=== PATIENT | female | born 2005 | race African-American/Black ===

== ENCOUNTER 2024-12-22 18:45 | Emergency (ER) | payer MEDICAID, SELFPAY ==
--- NOTE | 2024-12-22 18:52 | ED_ITS ---
HPI - Skin/Abscess/Foreign Bdy General Chief complaint: Skin/Abscess/Foreign Body Stated complaint: Skin/Abscess/Foreign Body Time Seen by Provider: 12/22/24 18:53 Source: patient Mode of arrival: ambulatory Limitations: no limitations History of Present Illness HPI narrative: Christine is a 19-year-old female patient presenting to the clinic today with complaints of a itchy rash on bilateral hands. States it started 2 nights ago. 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 Has use some hydrocortisone cream with relief. States that the bumps looks to be fluid-filled and are itching on her hands. No sign tunneling, redness, or swelling. Denies any sores in her mouth or on her feet. No fevers, chills, or body aches Related Data Allergies Allergy/AdvReac Type Severity Reaction Status Date / Time No Known Allergies Allergy Verified 12/22/24 18:52 Review of Systems Review of Systems: Pertinent positives per HPI. Patient denies any fever, chills, rash, headache, visual changes, dizziness, cough, runny nose, sore throat, shortness of breath, chest pain, palpitations, nausea, vomiting, diarrhea, constipation, abdominal pain, or any urinary issues. PMFSH Comments At the time of my signature, I reviewed and agree with the nursing past medical, surgical, social, and family history. There is no relevant family history pertinent to the patient complaint. Exam Narrative: General: Well-developed, well nourished, in no apparent distress Head: Normocephalic, atraumatic. Cardio: Regular rate and rhythm, s1 and s2 normal, no murmur appreciated. Resp: Clear to auscultation bilaterally, no rhonchi, rales, wheezing or rubs. Integumentary: [place], warm, and dry, small fluid-filled like blisters on bilateral hands on fingers and palms Course Course Emergency Course: Portions of this record may have been created with voice recognition software. Level of Care: Express Care Visit Vital Signs Vital signs: Vital Signs Temperature 36.6 C 12/22/24 18:53 Pulse Rate 90 12/22/24 18:53 Respiratory Rate 18 12/22/24 18:53 Blood Pressure 120/67 12/22/24 18:53 Pulse Oximetry 100 12/22/24 18:53 Oxygen Delivery Room Air 12/22/24 18:53 Temperature 36.6 C 12/22/24 18:53 Pulse Rate 90 12/22/24 18:53 Respiratory Rate 18 12/22/24 18:53 Blood Pressure 120/67 12/22/24 18:53 Pulse Oximetry 100 12/22/24 18:53 Oxygen Delivery Room Air 12/22/24 18:53 Vital signs reviewed MDM - Skin/Abscess/Foreign Bdy MDM Narrative Medical decision making narrative: At the time of visit patient is resting comfortably on the exam table. Patient appears to be nontoxic. Plan: Differentials include molluscum, scabies, [id number], eczema, or viral rash. I suspect patient has dihydrate eczema. Prescription for triamcinolone cream was sent to the pharmacy. Supportive measures were discussed with the patient and they voiced understanding discharge instructions and agrees to treatment plan. Return precautions reviewed Differential Diagnosis Differential diagnosis: Likely abscess of skin or subcutaneous tissue, viral exanthem, dermatophytosis, urticaria, herpes zoster, allergic reaction to drug, cellulitis, eczema, insect bites, impetigo, contact dermatitis and other (Mol luscum, [id number]) Discharge Plan Discharge Clinical Impression: Dyshidrotic eczema Patient Disposition: Home Condition: Stable Instructions: Antibiotic Form, Dyshidrotic Eczema (ED) Additional Instructions: Apply triamcinolone cream as directed Avoid triggers causing the dermatitis Avoid hot showers Avoid scratching as this can cause a secondary infection May take benadryl 25-50mg every 6 hours as needed for itching. Follow up with your PCP in 3-5 days if symptoms persist or sooner if they worsen Go to the Emergency Room if symptoms worsen- fever, rash spreading with treatment, shortness of breath, tongue swelling, drooling, or chest pain Patient Language: [place] Prescriptions: New triamcinolone acetonide 0.1 % cream 1 applic topical BID 7 Days Qty: 30 0RF Follow-up/Referrals: PHYSICIAN,ARABIC TRANSLATOR [Primary Care Provider] - Time of Disposition: 18:58 Quality NIHSS Nursing Documentation ED NIHSS nursing documentation: reviewed/agree
--- OUTSIDE RECORDS SUMMARY | 2024-12-22 18:52 | XMS_ITS | Clinical Summary ---
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 Gender Identity Not on file Sexual Orientation Not on file Obstetrics History Para Term AB IAB SAB Ectopic Multiple Livin g Live Births 0 0 0 0 0 0 0 0 0 0 0 Plan of Treatment Health Maintenance Due Date Last Done Comments Cervical Cancer Screening 2003 Depression Screening 2003 Hepatitis C Screening 2003 HPV Vaccines (2 - 3-dose series) 09/06/2018 08/09/2018 Meningococcal B Vaccine (1 of 2 - Standard) 2019 Regular Well Visit/Exam 18-64 2021 Influenza Vaccine (#1) 2024 8, 08/05/2004, 2003 DTaP/Tdap/Td Vaccine (7 - Td or Tdap) 10/24/2024 10/24/2014, 01/12/2008, 08/05/2004, Additional history exists Hepatitis B Screening Completed 2003 , 2003, 2003 Pneumococcal vaccine <65 Completed 004, 2003, 2003, Additional history exists Varicella Vaccines Completed 01/12/2008, 03/19/2004 Meningococcal Vaccine Aged Out 10/24/2014 No joce valerie eligible based on patient's age to complete this topic Insurance [employer] [facility] Address: [facility] [id number] [place] [address] Care Teams Special Agent In Charge Relationship Specialty Start Date End Date Martha Perez PA PCP - General Infant Toddler Lead Teacher 09/24/23
--- OUTSIDE RECORDS SUMMARY | 2024-12-22 18:52 | XMS_ITS | Referral Summary ---
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
--- OUTSIDE RECORDS SUMMARY | 2024-12-22 18:52 | XMS_ITS | Clinical Summary ---
Author Organization [facility] Address [address] [place] [id number] Care Team Providers Care Clinical Sales Consultant Name Role Phone Martha Perez PA-C Primary Care Provider [phone] Allergies No known active allergies Encounters Date Type Department Care Team Description 10/10/2024 3:18 PM COMPOSITE LAYUP WORKER - 10/10/2024 6:31 PM COMPOSITE LAYUP WORKER Emergency [facility] [place] [address] Adam Burroughs PA Abdominal Pain Discharge Disposition: Home or Self Care (Routine Discharge) 10/10/2024 Travel from Last 3 Months Social History Tobacco Use Types Packs/Day Years Used Date Smoking Tobacco: Never Smokeless Tobacco: Never Tobacco Cessation:Counseling Given: Not Answered Comments Unknown Sex and Gender Information Value Date Recorded Sex Assigned at Female 10/10/2024 2:45 PM COMPOSITE LAYUP WORKER Legal Sex Female 1:15 PM COMPOSITE LAYUP WORKER Gender Identity Not on file Sexual Orientation Not on file Last Filed Vital Signs Vital Sign Reading Time Taken Comments Blood Pressure 127/76 10/10/2024 6:29 PM COMPOSITE LAYUP WORKER Pulse 74 10/10/2024 6:29 PM COMPOSITE LAYUP WORKER Temperature 36.3 C (97.4 F) 10/10/2024 2:49 PM COMPOSITE LAYUP WORKER Respiratory Rate 18 10/10/2024 6:29 PM COMPOSITE LAYUP WORKER Oxygen Saturation 100% 10/10/2024 6:29 PM COMPOSITE LAYUP WORKER Inhaled Oxygen Concentration - - Weight 107.5 kg (236 lb 15.9 oz) 10/10/2024 2:49 PM COMPOSITE LAYUP WORKER Height 161.3 cm (5' 3.5 ) 10/10/2024 2:49 PM COMPOSITE LAYUP WORKER Body Mass Index 41.32 10/10/2024 2:49 PM COMPOSITE LAYUP WORKER Plan of Treatment Health Maintenance Due Date Last Done Comments Cervical Cancer Screening Pap Smear (Age 21 to 29) Every 3 Years 2003 Cervical Cancer Screening 2003 Annual Physical 2006 HPV Vaccines (2 - 3-dose series) 09/06/2018 08/09/2018 Meningococcal B Vaccine (1 of 2 - Standard) 2019 Hepatitis C 2021 COVID-19 Vaccine ( season) 2024 DTaP, Tdap and Td Vaccines (7 - Td or Tdap) 10/24/2024 10/24/2014, 01/12/2008, 08/05/2004, Additional history exists Hepatitis B Vaccines Completed 2003, 2003, 2003 Pneumococcal Vaccine: Pediatrics (0 to 5 Years) and At-Risk Patients (6 to 49 Years) Aged Out 08/05/2004, 2003, 2003, Additional history exists No longer eligible based on patient's age to complete this topic Meningococcal Vaccine Aged Out 10/24/2014 No joce valerie eligible based on patient's age to complete this topic RSV Immunizations Under 20 Months Aged Out No longer eligible based on patient's age to complete this topic Procedures Procedure Name Priority Date/Time Associated Diagnosis Comments CT ABD+PEL W CON STAT 10/10/2024 3:44 PM COMPOSITE LAYUP WORKER HC URINALYSIS AUTO W/O MICRO STAT 10/10/2024 3:28 PM COMPOSITE LAYUP WORKER POCT URINE (BACK OFFICE) STAT 10/10/2024 3:27 PM COMPOSITE LAYUP WORKER COMPREHENSIVE METABOLIC PANEL STAT 10/10/2024 2:55 PM COMPOSITE LAYUP WORKER CBC W/DIFF AUTOMATED STAT 10/10/2024 2:55 PM COMPOSITE LAYUP WORKER from Last 3 Months Results * CT ABD+PEL W IV CON ONLY (10/10/2024 3:44 PM COMPOSITE LAYUP WORKER) Anatomical Region Laterality Modality Abdomen Computed Tomogra phy 10/10/2024 3:57 PM COMPOSITE LAYUP WORKER Impressions 10/10/2024 4:02 PM COMPOSITE LAYUP WORKER Impression: No acute abnormality is identified within the abdomen or pelvis. Ordered By: ADAM BURROUGHS Interpreted By: Memo Graff MD, 10/10/2024 3:57 PM Narrative 10/10/2024 4:02 PM COMPOSITE LAYUP WORKER [facility] [address] [place], [place] [address] Examination: CT abdomen and pelvis with IV contrast. Clinical Information: Right lower quadrant pain. Comparison:No comparison. Technique: IV contrast: 100 mL Isovue 300. Oral contrast: None. Technical comments: Standard technique. Dose reduction: This CT exam was performed using one or more of the following dose reduction techniques: Automated exposure control, adjustment of the mA and/or kV according to patient size, and/or use of iterative reconstruction technique. Findings: LOWER CHEST Heart is normal in size. Lung bases are clear. No pleural or pericardial effusions. UPPER ABDOMEN Liver and bile ducts: No focal liver lesion. Portal vein and hepatic veins are patent. No biliary dilatation. Gallbladder: No gallbladder wall thickening or pericholecystic fluid. Pancreas: Unremarkable. Spleen: Normal. RETROPERITONEUM Adrenals: Normal. Kidneys: Unremarkable. Lymph nodes: No lymphadenopathy in the abdomen or pelvis. BOWEL AND PERITONEUM Bowel: Normal in caliber and wall thickness. The appendix is normal. Free air or fluid: None. VASCULATURE The abdominal aorta is normal in caliber. PELVIS No abnormality. BONES/SOFT TISSUES No significant lesion. Procedure Note Memo Graff MD - 10/10/2024 [facility] [address] [place], [place] [address] Examination: CT abdomen and pelvis with IV contrast. Clinical Information: Right lower quadrant pain. Comparison:No comparison. Technique: IV contrast: 100 mL Isovue 300. Oral contrast: None. Technical comments: Standard technique. Dose reduction: This CT exam was performed using one or more of thefollowing dose reduction techniques: Automated exposure control,adjustment of the mA and/or kV according to patient size, and/or use ofiterative reconstruction technique. Findings: LOWER CHEST Heart is normal in size. Lung bases are clear. No pleural or pericardialeffusions. UPPER ABDOMEN Liver and bile ducts: No focal liver lesion. Portal vein and hepaticveins are patent. No biliary dilatation. Gallbladder: No gallbladder wall thickening or pericholecystic fluid. Pancreas: Unremarkable. Spleen: Normal. RETROPERITONEUM Adrenals: Normal. Kidneys: Unremarkable. Lymph nodes: No lymphadenopathy in the abdomen or pelvis. BOWEL AND PERITONEUM Bowel: Normal in caliber and wall thickness. The appendix is normal. Free air or fluid: None. VASCULATURE The abdominal aorta is normal in caliber. PELVIS No abnormality. BONES/SOFT TISSUES No significant lesion. Impression: No acute abnormality is identified within the abdomen or pelvis. Ordered By: ADAM BURROUGHS Interpreted By: Memo Graff MD, 10/10/2024 3:[address] Final Resul t * URINALYSIS (10/10/2024 3:28 PM COMPOSITE LAYUP WORKER) SPECIMEN TYPE URINE CLEAN CATCH 10/10/2024 3:27 PM COMPOSITE LAYUP WORKER [facility] COLOR (U) LIGHT YELLOW 10/10/2024 3:53 PM COMPOSITE LAYUP WORKER [facility] TRANSPARENCY CLEAR 10/10/2024 3:53 PM [facility] SPECIFIC GRAVITY (U) 1.019 1.001 - 1.030 10/10/2024 3:53 PM [facility] U PH 6.5 5.0 - 9.0 10/10/2024 3:53 PM [facility] LEUKOCYTES (U) NEGATIVE NEGATIVE 10/10/2024 3:53 PM [facility] NITRITES NEGATIVE NEGATIVE 10/10/2024 3:53 PM [facility] PROTEIN RANDOM (U) NEGATIVE <30 MG/DL 10/10/2024 3:53 PM COMPOSITE LAYUP WORKER [facility] GLUCOSE (U) NORMAL NORMAL MG/DL 10/10/2024 3:53 PM COMPOSITE LAYUP WORKER [facility] KETONES MG/DL (U) NEGATIVE NEGATIVE MG/DL 10/10/2024 3:53 PM COMPOSITE LAYUP WORKER [facility] UROBILINOGEN NORMAL NORMAL MG/DL 10/10/2024 3:53 PM COMPOSITE LAYUP WORKER [facility] BILIRUBIN (U) NEGATIVE NEGATIVE MG/DL 10/10/2024 3:53 PM COMPOSITE LAYUP WORKER [facility] BLOOD (U) NEGATIVE NEGATIVE 10/10/2024 3:53 PM COMPOSITE LAYUP WORKER [facility] URINE SPECIMEN OBTAINED BY CLEAN CATCH PROCEDURE / Unknown 10/10/2024 3:28 PM COMPOSITE LAYUP WORKER Adam STONE URINE ORDERABLES Final Resu lt [facility] [address] [place] [address], [place] [phone] * POCT urine (10/10/2024 3:27 PM COMPOSITE LAYUP WORKER) URINE HCG TEST NEGATIVE Internal Control: VALID Adam STONE POINT OF CARE TEST ORDERABL ES Final Result * (ABNORMAL) COMPREHENSIVE METABOLIC PANEL (10/10/2024 2:55 PM COMPOSITE LAYUP WORKER) GLUCOSE 81 70 - 99 MG/DL 10/10/2024 4:31 PM COMPOSITE LAYUP WORKER [facility] BUN 13 7 - 18 MG/DL 10/10/2024 4:31 PM COMPOSITE LAYUP WORKER [facility] CREATININE S/P/B 0.77 0.55 - 1.02 MG/DL 10/10/2024 4:31 PM COMPOSITE LAYUP WORKER [facility] SODIUM S/P/B 136 136 - 145 MMOL/L 10/10/2024 4:31 PM [facility] POTASSIUM S/P/B 3.5 3.5 - 5.1 MMOL/L 10/10/2024 4:31 PM [facility] CHLORIDE S/P/B 103 97 - 115 MMOL/L 10/10/2024 4:31 PM [facility] CO2 29.4 21 - 32 MMOL/L 10/10/2024 4:31 PM [facility] CALCIUM S/P/B 9.3 8.5 - 10.1 MG/DL 10/10/2024 4:31 PM [facility] BILIRUBIN TOTAL S/P/B 0.3 0.2 - 1.2 MG/DL 10/10/2024 4:31 PM [facility] Comment: THIS ASSAY IS NOT RECOMMENDED FOR PATIENTS UNDERGOING TREATMENT WITH ELTROMBOPAG DUE TO THE POTENTIAL FOR FALSELY ELEVATED RESULTS. TOTAL PROTEIN S/P/B 7.8 6.4 - 8.2 G/DL 10/10/2024 4:31 PM [facility] ALBUMIN S/P/B 3.4 3.4 - 5.0 G/DL 10/10/2024 4:31 PM [facility] AST 23 15 - 37 U/L 10/10/2024 4:31 PM [facility] ALT 40 14 - 55 U/L 10/10/2024 4:31 PM [facility] ALKALINE PHOSPHATASE S/P/B 106 50 - 136 U/L 10/10/2024 4:31 PM [facility] ANION GAP 3.6 2 - 10 MMOL/L 10/10/2024 4:31 PM [facility] BUN CREATININE RATIO 16.8 6 - 26 10/10/2024 4:31 PM [facility] A/G RATIO 0.8(L) 1.0 - 2.0 RATIO 10/10/2024 4:31 PM COMPOSITE LAYUP WORKER [facility] GFR ESTIMATE >90 >90 ML/MIN/1.7 3 M2 10/10/2024 4:31 PM COMPOSITE LAYUP WORKER [facility] Comment: NOTE: eGFR is not calculated for patients <18 years of age or gender unknown. This is an estimated GFR calculation using the new CKD EPI creatinine equation without race and so does not require a correction factor for race. This estimated GFR should not be used for calculating drug doses. 10/10/2024 2:55 PM COMPOSITE LAYUP WORKER us Adam STONE LABORAT[facility] Final Resul t [facility] [address] [place] [id number], * (ABNORMAL) CBC W/DIFF AUTOMATED (10/10/2024 2:55 PM COMPOSITE LAYUP WORKER) WBC 9.55 4.5 - 11.0 x10'3/uL 10/10/2024 4:30 PM COMPOSITE LAYUP WORKER [facility] RBC 5.36 4.20 - 5.40 x10'6/uL 10/10/2024 4:30 PM [facility] HGB 10.7(L) 12.0 - 16.0 G/DL 10/10/2024 4:30 PM COMPOSITE LAYUP WORKER [facility] HCT 36.9(L) 38.0 - 48.0 % 10/10/2024 4:30 PM COMPOSITE LAYUP WORKER [facility] MCV 68.8(L) 81.0 - 99.0 FL 10/10/2024 4:30 PM [facility] MCH 20.0(L) 27.0 - 31.0 PG 10/10/2024 4:30 PM COMPOSITE LAYUP WORKER [facility] MCHC 29.0(L) 32.0 - 36.0 G/DL 10/10/2024 4:30 PM [facility] RDW 18.4(H) 11.5 - 14.5 % 10/10/2024 4:30 PM [facility] PLT 330 130 - 400 x10'3/uL 10/10/2024 4:30 PM [facility] MPV 9.6 9.3 - 12.2 FL 10/10/2024 4:30 PM [facility] DIFFERENTIAL TYPE AUTOMATED DIFFERENTIAL 10/10/2024 5:06 PM [facility] NEUTROPHILS % 53.2 % 10/10/2024 5:06 PM [facility] LYMPHOCYTES % 35.6 % 10/10/2024 5:06 PM [facility] MONOCYTES % 7.9 % 10/10/2024 5:06 PM [facility] EOSINOPHILS 2.3 % 10/10/2024 5:06 PM [facility] BASOPHILS 0.7 % 10/10/2024 5:06 PM [facility] IMMATURE GRANS % 0.3 % 10/10/19 25 5:06 PM [facility] ABS. NEUTROPHILS 5.08 1.80 - 7.70 x10'3/uL 10/10/2024 5:06 PM [facility] ABS. LYMPHOCYTES 3.40 1.00 - 4.80 x10'3/uL 10/10/2024 5:06 PM [facility] ABS. MONOCYTES 0.75 0.24 - 0.86 x10'3/uL 10/10/2024 5:06 PM [facility] ABS. EOSINOPHILS 0.22 0.04 - 0.36 x10'3/uL 10/10/2024 5:06 PM COMPOSITE LAYUP WORKER [facility] ABS. BASOPHILS 0.07 0.01 - 0.08 x10'3/uL 10/10/2024 5:06 PM COMPOSITE LAYUP WORKER [facility] ABS. IMMATURE GRANULOCYTES 0.03 0.00 - 0.49 x10'3/uL 10/10/2024 5:06 PM COMPOSITE LAYUP WORKER [facility] RBC MORPHOLOGY SLIDE REVIEWED 2024 5:06 PM COMPOSITE LAYUP WORKER [facility] MICRO 1+ 10/10/2024 5:06 PM COMPOSITE LAYUP WORKER [facility] PLT EST. ADEQUATE 10/10/2024 5:06 PM COMPOSITE LAYUP WORKER [facility] 10/10/2024 2:55 PM COMPOSITE LAYUP WORKER Adam STONE [facility]ORAT[facility] Final Resul t [facility] [address] [place] [address], from Last 3 Months Insurance MEDICAID Care Teams Clinical Sales Consultant Relationship Specialty Start Date End Date Martha Perez PA-C [address] [place] [id number] PCP - General FAMILY PRACTICE 10/16/22
--- OUTSIDE RECORDS SUMMARY | 2024-12-22 18:52 | XMS_ITS | Data Portability ---
[facility] Organization [facility] Address [address] [place] [address] Assessment Encounter Date Assessment Date Assessment LastModified by Organization Details LastModified Time 06/21/2024 06/21/2024 -new Pt today -check initial labs Not available 06/27/2024 14:36:26 07/12/2024 07/12/2024 -labs reviewed -return to clinic as scheduled Not available 07/21/2024 12:23:57 Plan of Treatment Reminders Order Date Submit Date Provider Last Modified By Organization Details Last Modified Time Details Appointments None recorded. Lab RPR (rapid plasma reagin), serum 2023 024 [facility] (Lab), [address] [place], [address], 4 08:14:59 HIV 1 + 2 RNA panel, KAREN+probe , serum or plasma 2023 024 [facility] (Lab), [address] [place], [address], 4 20:11:02 unlisted lab - nuswab vaginitis plus (vg+) 2023 024 [facility] (Lab), [address] [place], [address], 4 08:15:39 glucose, fingersti ck, blood 2023 024 In-Office Order, Internal Use Only DO Not Attach Compendium DO Not Attach Compendium, Do Not Delete/merge, [id number] 14:35:53 HbA1c (hemoglob in A1c), blood 2023 In-Office Order, Internal Use Only DO Not Attach Compendium DO Not Attach Compendium, Do Not Delete/merge, [id number] 14:35:54 urinalysi s, dipstick 2023 In-Office Order, Internal Use Only DO Not Attach Compendium DO Not Attach Compendium, Do Not Delete/merge, 14:35:55 test, urine 2023 In-Office Order, Internal Use Only DO Not Attach Compendium DO Not Attach Compendium, Do Not Delete/merge, [id number] 14:35:55 unlisted lab - TSH rfx on abnormal to free T4 2023 [facility] (Lab), [address], [place], [address], 21:11:48 lipid panel, serum 2023 [facility] (Lab), [address], [place], [address], 21:22:17 CMP, serum or plasma 2023 [facility] (Lab), [address], [place], [address], 4 21:22:14 CBC w/ auto diff 2023 [facility] (Lab), [address], [place], [address], 4 20:45:44 chlamydia trachomat is + neisseria gonorrhoe ae + trichomon as vaginalis DNA panel, KAREN+probe , unspecifi ed specimen 2022 023 [facility], [address] [place] [address] [address], [address], [place], [address], 3 16:35:03 RPR (rapid plasma reagin), serum 2022 023 [facility], [address] [place] [address] [address], [address], [place], [address], 3 05:58:02 HIV 1 + 2, meaningfu l use set 2022 023 [facility], [address] [place] [address] [address], [address], [place], [address], 3 19:41:27 CMP, serum or plasma 2022 023 [facility], [address] [place] [address], [address], [place], [address], 3 16:53:47 lipid panel, serum 2022 023 [facility], [address] [place] [address] [address], [place], [address], 3 16:53:11 CBC w/ auto diff 2022 023 [facility], [address] [place] [address] [address], [place], [address], 3 16:51:31 TSH, ultra-sen sitive, serum 2022 023 [facility], [address] [place] [address] [address], [place], [address], 3 16:52:40 vitamin D, 25-hydrox y, total, serum 2022 023 [facility], [address], [place], [address], 3 03:43:48 HbA1c (hemoglob in A1c), blood 2022 023 [facility], [address] [facility] [address], [address], [place], [address], 3 08:12:08 Referral nutrition ist/dieti brynn referral 2022 023 [facility]outer Operator Nutrition Dietitian, [place], [address], 3 12:28:37 Procedures None recorded. Surgeries None recorded. Imaging None recorded. Medication Orders metronida zole 500 mg tablet 2023 024 [id number], [address] [place] [address], [id number], 4 14:54:10 Debrox 6.5 % ear drops 2023 024 [id number], [address] [place] [address], [id number], 4 14:46:09 Vitamin D2 1,250 mcg (50,000 unit) capsule 2022 023 [facility]143, [facility] [place], [id number], 4 13:58:54 Patient TargetsNo targets recorded. Patient Instructions Encounter Date Encounter Id Patient Instructions Last Modified By Organization Details Last Modified Time 10/02/2022 [id number] A healthy lifestyle: care instructions Not available 10/02/2022 10:46:09 12/04/2022 [id number] A healthy lifestyle: care instructions Not available 12/04/2022 11:15:38 06/21/2024 [id number] Thank you for allowing us to care for you today. Your Health is Our Duty As discussed, please return to the clinic for your next scheduled appointment. *Should you experience any sudden changes with your health, to include fever greater than 100.9, Chest pain, shortness of breath, thoughts of suicide or any other emergency please go to the nearest emergency room or call 911. Debra Ruggiero NP Nurse Practitioner General Medicine [email or web address] Not available 06/21/2024 14:34:39 07/12/2024 [id number] bacterial vaginosis: care instructions Not available 07/12/2024 14:53:56 A healthy lifestyle: care instructions Not available 07/12/2024 14:53:57 Thank you for allowing us to care for you today. Your Health is Our Duty As discussed, please return to the clinic for your next scheduled appointment. *Should you experience any sudden changes with your health, to include fever greater than 100.9, Chest pain, shortness of breath, thoughts of suicide or any other emergency please go to the nearest emergency room or call 911. 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 ral for Hyperglycemia Referring Physician: Martha Perez, Family Medicine, Encounter Date: 12/04/2022 Results Created Date Observation Date Name Description Value Unit Range Abnormal Flag Note LastModifiedBy Organization Detail LastModifiedTime 10/02/1910/04/2022 CT, NG, TRICH VAG BY KAREN chlamydia by KAREN Negati ve negati ve Not Available [facility] ([facility]) [address] [place], [address], 10/04/2022 06:12:25 10/02/1910/04/2022 CT, NG, TRICH VAG BY KAREN gonococcus by KAREN Negati ve negati ve Not Available [facility] ([facility]) [address] [place], [address], 10/04/2022 06:12:25 10/02/19 23 10/04/2022 CT, NG, TRICH VAG BY KAREN trich vag by KAREN Negati ve negati ve Not Available [facility] ([facility]) [address] [facility], [place], [address], 10/04/2022 06:12:25 06/21/20 24 06/21/2024 COMPL ETE BLOOD COUNT AUTO DIFF white blood count 7.9 x10e3 /uL 3.4-10 .8 normal Not Available [facility] (Lab) [address] [facility], [place], [address], 06/21/2024 20:45:44 06/21/2006/21/2024 COMPL ETE BLOOD COUNT AUTO DIFF red blood count 5.39 x10e6 /uL 3.77-5 .28 high Not Available [facility] (Lab) [address] [facility], [place], [address], 06/21/2024 20:45:44 06/21/20 24 06/21/2024 COMPL ETE BLOOD COUNT AUTO DIFF hemoglobin 10.6 g/dL 11.1-1 5.9 low Not Available [facility] (Lab) [address] [facility], [place], [address], 06/21/2024 20:45:44 06/21/20 24 06/21/2024 COMPL ETE BLOOD COUNT AUTO DIFF hematocrit 37.2 % 34.0-4 6.6 normal Not Available [facility] (Lab) [address] [facility], [place], [address], 06/21/2024 20:45:44 06/21/20 24 06/21/2024 COMPL ETE BLOOD COUNT AUTO DIFF mean corpuscular volume 69 fL 79-97 low Not Available [facility] (Lab) [address] [facility], [place], [address], 06/21/2024 20:45:44 06/21/20 24 06/21/2024 COMPL ETE BLOOD COUNT AUTO DIFF mean corpuscular hemoglobin 19.7 pg 26.6-3 3.0 low Not Available [facility] (Lab) [address] [place], [address], 06/21/2024 20:45:44 06/21/2006/21/2024 COMPL ETE BLOOD COUNT AUTO DIFF mean corpuscular HGB conc 28.5 g/dL 31.5-3 5.7 low Not Available [facility] (Lab) [address] [place], [address], 06/21/2024 20:45:44 06/21/2006/21/2024 COMPL ETE BLOOD COUNT AUTO DIFF red cell distribution width 18.6 % 11.5-1 4.5 high Not Available [facility] ([facility]) [address] [facility], [place], [address], 06/21/2024 20:45:44 06/21/2006/21/2024 COMPL ETE BLOOD COUNT AUTO DIFF platelet count 340 x10e3 /uL 150-45 0 normal Not Available [facility] (Lab) [address] [facility], [place], [address], 06/21/2024 20:45:44 06/21/2006/21/2024 COMPL ETE BLOOD COUNT AUTO DIFF mean platelet volume 9.9 fL 8.9-12 .7 normal Not Available [facility] (Lab) [address] [place], [address], 06/21/2024 20:45:44 06/21/2006/21/2024 COMPL ETE BLOOD COUNT AUTO DIFF immature granulocytes pct auto 0.3 % not estb. Not Available [facility] (Lab) [address] [place], [address], 06/21/2024 20:45:44 06/21/2006/21/2024 COMPL ETE BLOOD COUNT AUTO DIFF neutrophils percent auto 50 % not estb. Not Available [facility] (Lab) [address] [place], [address], 06/21/2024 20:45:44 06/21/20 24 06/21/2024 COMPL ETE BLOOD COUNT AUTO DIFF lymphocytes percent auto 36 % not estb. Not Available [facility] (Lab) [address] [place], [address], 06/21/2024 20:45:44 06/21/20 24 06/21/2024 COMPL ETE BLOOD COUNT AUTO DIFF monocytes percent auto 8 % not estb. Not Available [facility] (Lab) [address] [facility], [place], [address], 06/21/2024 20:45:44 06/21/2006/21/2024 COMPL ETE BLOOD COUNT AUTO DIFF eosinophils percent auto 5 % not estb. Not Available [facility] (Lab) [address] [facility], [place], [address], 06/21/2024 20:45:44 06/21/20 24 06/21/2024 COMPL ETE BLOOD COUNT AUTO DIFF basophils percent auto 1 % not estb. Not Available [facility] (Lab) [address] [facility], [place], [address], 06/21/2024 20:45:44 06/21/20 24 06/21/2024 COMPL ETE BLOOD COUNT AUTO DIFF neutrophils absolute auto 3.9 x10e3 /uL 1.4-7. 0 normal Not Available [facility] (Lab) [address] [place], [address], 06/21/2024 20:45:44 06/21/20 24 06/21/2024 COMPL ETE BLOOD COUNT AUTO DIFF immature granulocytes abs auto 0.0 x10e3 /uL 0.0-0. 1 normal Not Available [facility] (Lab) [address] [place], [address], 06/21/2024 20:45:44 06/21/20 24 06/21/2024 COMPL ETE BLOOD COUNT AUTO DIFF lymphocytes absolute auto 2.8 x10e3 /uL 0.7-3. 1 normal Not Available [facility] (Lab) [address] [place], [address], 06/21/2024 20:45:44 06/21/2006/21/2024 COMPL ETE BLOOD COUNT AUTO DIFF monocytes absolute auto 0.7 x10e3 /uL 0.1-0. 9 normal Not Available [facility] ([facility]) [address] [place], [address], 06/21/2024 20:45:44 06/21/2006/21/2024 COMPL ETE BLOOD COUNT AUTO DIFF eosinophils absolute auto 0.4 x10e3 /uL 0.0-0. 4 normal Not Available [facility] ([facility]) [address] [place], [address], 06/21/2024 20:45:44 06/21/2006/21/2024 COMPL ETE BLOOD COUNT AUTO DIFF basophils absolute auto 0.1 x10e3 /uL 0.0-0. 2 normal Not Available [facility] (Lab) [address] [place], [address], 06/21/2024 20:45:44 06/21/2006/21/2024 COMPL ETE BLOOD COUNT AUTO DIFF nucleated red blood cells auto 0 % 0-0 normal Not Available [facility] (Lab) [address] [place], [address], 06/21/2024 20:45:44 06/21/2006/21/2024 TSH RFX ON ABNOR MAL TO FREE T4 TSH rfx on abnormal to free T4 2.50 uIU/m L 0.450- 4.500 normal Not Available [facility] (Lab) [address] [place], [address], 06/21/2024 21:11:48 06/21/2006/21/2024 COMPR EHENS SHILOH METAB OLIC PANEL sodium 140 mmol/ L 134-14 4 normal Not Available [facility] (Lab) [address] [place], [address], 06/21/2024 21:22:14 06/21/20 24 06/21/2024 COMPR EHENS SHILOH METAB OLIC PANEL potassium 4.7 mmol/ L 3.5-5. 2 normal Not Available [facility] (Lab) [address] [place], [address], 06/21/2024 21:22:14 06/21/20 24 06/21/2024 COMPR EHENS SHILOH METAB OLIC PANEL chloride 102 mmol/ L 96-106 normal Not Available [facility] (Lab) [address] [place], [address], 06/21/2024 21:22:14 06/21/2006/21/2024 COMPR EHENS SHILOH METAB OLIC PANEL carbon dioxide 28 mmol/ L 20-29 normal Not Available [facility] (Lab) [address], [place], [address], 06/21/2024 21:22:14 06/21/2006/21/2024 COMPR EHENS SHILOH METAB OLIC PANEL anion gap 14.0 mmol/ L Not Available [facility] (Lab) [address], [place], [address], 06/21/2024 21:22:14 06/21/20 24 06/21/2024 COMPR EHENS SHILOH METAB OLIC PANEL blood urea nitrogen 17 mg/dL 6-20 normal Not Available [facility] ([facility]) [address] [place], [address], 06/21/2024 21:22:14 06/21/2006/21/2024 COMPR EHENS SHILOH METAB OLIC PANEL creatinine 0.65 mg/dL 0.76-1 .27 low Not Available [facility] (Lab) [address] [place], [address], 06/21/2024 21:22:14 06/21/20 24 06/21/2024 COMPR EHENS SHILOH METAB OLIC PANEL glomerular filtration rate 128 mL/mi n/1 Not Available [facility] (Lab) [address] [place], [address], 06/21/2024 21:22:14 06/21/2006/21/2024 COMPR EHENS SHILOH METAB OLIC PANEL BUN creatinine ratio 26 9-23 high Not Available [facility] (Lab) [address] [facility], [place], [address], 06/21/2024 21:22:14 06/21/2006/21/2024 COMPR EHENS SHILOH METAB OLIC PANEL glucose 81 mg/dL 70-99 normal Not Available [facility] (Lab) [address] [place], [address], 06/21/2024 21:22:14 06/21/2006/21/2024 COMPR EHENS SHILOH METAB OLIC PANEL osmolality calculated 280 275-29 5 normal Not Available [facility] (Lab) [address] [place], [address], 06/21/2024 21:22:14 06/21/20 24 06/21/2024 COMPR EHENS SHILOH METAB OLIC PANEL calcium 9.8 mg/dL 8.7-10 .2 normal Not Available [facility] (Lab) [address] [facility], [place], [address], 06/21/2024 21:22:14 06/21/20 24 06/21/2024 COMPR EHENS SHILOH METAB OLIC PANEL bilirubin total <=0.2 mg/dL 0.0-1. 2 normal Not Available [facility] (Lab) [address] [facility], [place], [address], 06/21/2024 21:22:14 06/21/2006/21/2024 COMPR EHENS SHILOH METAB OLIC PANEL aspartate amino transferase 21 IU/L 0-40 normal Not Available [facility] (Lab) [address] [place], [address], 06/21/2024 21:22:14 06/21/20 24 06/21/2024 COMPR EHENS SHILOH METAB OLIC PANEL alanine aminotransfe rase 19 IU/L 0-32 normal Not Available [facility] (Lab) [address] [place], [address], 06/21/2024 21:22:14 06/21/20 24 06/21/2024 COMPR EHENS SHILOH METAB OLIC PANEL total protein 7.7 g/dL 6.0-8. 5 normal Not Available [facility] (Lab) [address], [place], [address], 06/21/2024 21:22:14 06/21/2006/21/2024 COMPR EHENS SHILOH METAB OLIC PANEL albumin level 4.3 g/dL 4.0-5. 0 normal Not Available [facility] (Lab) [address], [place], [address], 06/21/2024 21:22:14 06/21/20 24 06/21/2024 COMPR EHENS SHILOH METAB OLIC PANEL globulin 3.4 g/dL 1.5-4. 5 normal Not Available [facility] (Lab) [address], [place], [address], 06/21/2024 21:22:14 06/21/20 24 06/21/2024 COMPR EHENS SHILOH METAB OLIC PANEL albumin globulin ratio 1.0 1.2-2. 2 low Not Available [facility] (Lab) [address] [place], [address], 06/21/2024 21:22:14 06/21/2006/21/2024 COMPR EHENS SHILOH METAB OLIC PANEL alkaline phosphatase 106 IU/L 44-121 normal Not Available [facility] (Lab) [address] [place], [address], 06/21/2024 21:22:14 06/21/2006/21/2024 LIPID PANEL triglyceride s 65 mg/dL 0-149 normal Not Available [facility] (Lab) [address] [place], [address], 06/21/2024 21:22:17 06/21/20 24 06/21/2024 LIPID PANEL cholesterol 156 mg/dL 100-19 9 normal Not Available [facility] (Lab) [address] [place], [address], 06/21/2024 21:22:17 06/21/20 24 06/21/2024 LIPID PANEL LDL cholesterol 94 mg/dL 0-99 normal Not Available [facility] ([facility]) [address] [place], [address], 06/21/2024 21:22:17 06/21/20 24 06/21/2024 LIPID PANEL VLDL cholesterol (calc) 13 mg/dL 5-40 normal Not Available [facility] ([facility]) [address] [facility], [place], [address], 06/21/2024 21:22:17 06/21/20 24 06/21/2024 LIPID PANEL HDL cholesterol 52 mg/dL 40-999 normal Not Available [facility] ([facility]) [address] [place], [address], 06/21/2024 21:22:17 06/21/20 24 06/21/2024 LIPID PANEL LDL HDL ratio 1.8 0-3.2 normal Not Available [facility] (Lab) [address] [facility], [place], [address], 06/21/2024 21:22:17 06/21/20 24 06/21/2024 LIPID PANEL chol HDL ratio 3.0 mg/dL 0-4.4 normal Not Available [facility] (Lab) [address] [place], [address], 06/21/2024 21:22:17 06/21/20 24 06/21/2024 SCAN platelet morphology comment Normal Not Available [facility] (Lab) [address] [facility], [place], [address], 06/22/2024 00:07:22 06/21/20 24 06/21/2024 SCAN RBC morphology comment ABNORM AL normal abnormal Not Available [facility] (Lab) [address], [place], [address], 06/22/2024 00:07:22 06/21/20 24 06/21/2024 SCAN hypochromasi a 1+ not estb. Not Available [facility] (Lab) [address], [place], [address], 06/22/2024 00:07:22 06/21/2006/21/2024 SCAN anisocytosis 1+ not estb. Not Available [facility] (Lab) [address], [place], [address], 06/22/2024 00:07:22 06/21/20 24 06/21/2024 SCAN microcytosis OCCASI ONAL not estb. Not Available [facility] (Lab) [address], [place], [address], 06/22/2024 00:07:22 06/21/20 24 06/21/2024 SCAN macrocytosis OCCASI ONAL not estb. Not Available [facility] (Lab) [address], [place], [address], 06/22/2024 00:07:22 06/21/20 24 06/21/2024 SCAN tear drop cells OCCASI ONAL not estb. Not Available [facility] (Lab) [address], [place], [address], 06/22/2024 00:07:22 06/21/20 24 06/21/2024 SCAN ovalocytes OCCASI ONAL not estb. Not Available [facility] (Lab) [address], [place], [address], 06/22/2024 00:07:22 06/21/20 24 06/21/2024 SCAN stomatocytes OCCASI ONAL not estb. Not Available [facility] (Lab) [address], [place], [address], 06/22/2024 00:07:22 06/21/20 24 06/21/2024 SCAN schistocytes OCCASI ONAL not estb. Not Available [facility] (Lab) [address] [place], [address], 06/22/2024 00:07:22 06/21/20 24 06/23/2024 RPR, RFX QN RPR/C ONFIR M TP RPR NON REACTI VE non reacti ve [facility] [address] [place] [id number] Lab Direc tor: Curt dunham PhD, Phone : [phone] Not Available [facility] (Lab) [address] [place], [address], 06/23/2024 08:14:59 06/21/2006/23/2024 HIV-1 /HIV- 2 QUALI TATIV E RNA HIV-1 RNA NON REACTI VE non reacti ve Not Available [facility] (Lab) [address] [facility], [place], [address], 06/23/2024 20:11:02 06/21/2006/23/2024 HIV-1 /HIV- 2 QUALI TATIV E RNA HIV-2 RNA NON REACTI VE non reacti ve [facility]: [facility] [address] [address] Lab Direc tor: Aria quiles MD, Phone : [phone] Not Available [facility] (Lab) [address] [place], [address], 06/23/2024 20:11:02 06/21/2006/24/2024 NUSWA B VAGIN ITIS PLUS (VG+) atopobium vaginae HIGH - 2 score . abnormal This test was devel oped and its perfo rmanc e rick cteri stics deter mined by [facility]. It has not been clear ed or appro meghan by the Food and Drug Admin istra tion. Not Available [facility] (Lab) [address] [place], [address], 06/24/2024 08:15:39 06/21/2006/24/2024 NUSWA B VAGIN ITIS PLUS (VG+) bvab 2 HIGH - 2 score . abnormal This test was devel oped and its perfo rmanc e rick cteri stics deter mined by [facility]. It has not been clear ed or appro meghan by the Food and Drug Admin istra tion. Not Available [facility] (Lab) [address] [place], [address], 06/24/2024 08:15:39 06/21/2006/24/2024 NUSWA B VAGIN ITIS PLUS (VG+) megasphaera 1 HIGH - 2 score . abnormal This test was devel oped and its perfo rmanc e rick cteri stics deter mined by [facility]. It has not been clear ed or appro meghan by the Food and Drug Admin istra tion. Calcu late total score by zoraida fiore the 3 indiv idual bacte rial vagin osis (BV) marke r score s toget her. Total score is inter prete d as follo ws: Total score 0-1: Indic ates the absen ce of BV. Total score 2: Indet ermin ate for BV. Addit ional clini cande data shoul d be evalu ated to estab hossein a diagn osis. Total score 3-6: Indic ates the prese nce of BV. Not Available [facility] (Lab) [address] [place], [address], 06/24/2024 08:15:39 06/21/20 24 06/24/2024 NUSWA B VAGIN ITIS PLUS (VG+) ann albicans, KAREN NEGATI VE negati ve This test was devel oped and its perfo rmanc e rick cteri stics deter mined by [facility]. It has not been clear ed or appro meghan by the Food and Drug Admin istra tion. Not Available [facility] (Lab) [address] [place], [address], 06/24/2024 08:15:39 06/21/2006/24/2024 NUSWA B VAGIN ITIS PLUS (VG+) ann glabrata, KAREN NEGATI VE negati ve This test was devel oped and its perfo rmanc e rick cteri stics deter mined by [facility]. It has not been clear ed or appro meghan by the Food and Drug Admin istra tion. Not Available [facility] (Lab) [address] [facility], [place], [address], 06/24/2024 08:15:39 06/21/2006/24/2024 NUSWA B VAGIN ITIS PLUS (VG+) trich vag by KAREN NEGATI VE negati ve Not Available [facility] (Lab) [address] [facility], [place], [address], 06/24/2024 08:15:39 06/21/2006/24/2024 NUSWA B VAGIN ITIS PLUS (VG+) chlamydia trachomatis, KAREN NEGATI VE negati ve Not Available [facility] (Lab) [address] [facility], [place], [address], 06/24/2024 08:15:39 06/21/2006/24/2024 NUSWA B VAGIN ITIS PLUS (VG+) neisseria gonorrhoeae, KAREN NEGATI VE negati ve Perfo rmed at: 01 - [facility] [place] [address] [facility] [address] Lab Direc tor: Shawna cortes MD, Phone : [phone] Not Available [facility] (Lab) [address] [facility], [place], [address], 06/24/2024 08:15:39 06/21/2006/21/2024 SCAN platelet morphology comment Normal Not Available [facility] (Lab) [address] [place], [address], 07/11/2024 16:12:39 06/21/20 24 06/21/2024 SCAN RBC morphology comment ABNORM AL normal abnormal Not Available [facility] (Lab) [address] [place], [address], 07/11/2024 16:12:39 06/21/20 24 06/21/2024 SCAN hypochromasi a 1+ not estb. Not Available [facility] (Lab) [address] [facility], [place], [address], 07/11/2024 16:12:39 06/21/20 24 06/21/2024 SCAN anisocytosis 1+ not estb. Not Available [facility] (Lab) [address] [facility], [place], [address], 07/11/2024 16:12:39 06/21/20 24 06/21/2024 SCAN microcytosis OCCASI ONAL not estb. Not Available [facility] (Lab) [address] [facility], [place], [address], 07/11/2024 16:12:39 06/21/20 24 06/21/2024 SCAN macrocytosis OCCASI ONAL not estb. Not Available [facility] (Lab) [address] [facility], [place], [address], 07/11/2024 16:12:39 06/21/20 24 06/21/2024 SCAN tear drop cells OCCASI ONAL not estb. Not Available [facility] ([facility]) [address] [facility], [place], [address], 07/11/2024 16:12:39 06/21/20 24 06/21/2024 SCAN ovalocytes OCCASI ONAL not estb. Not Available [facility] (Lab) [address] [facility], [place], [address], 07/11/2024 16:12:39 06/21/20 24 06/21/2024 SCAN stomatocytes OCCASI ONAL not estb. Not Available [facility] (Lab) [address] [facility], [place], [address], 07/11/2024 16:12:39 06/21/20 24 06/21/2024 SCAN schistocytes OCCASI ONAL not estb. 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 Not Available [facility] (Lab) [address], [place], [address], 07/11/2024 16:12:39 06/21/2006/21/2024 urina lysis , dipst ick Leukocytes Negati ve Not Available In-Office Order Internal Use Only DO Not Attach Compendium DO Not Attach Compendium, Do Not Delete/merge, [id number] 06/21/2024 13:59:14 06/21/2006/21/2024 urina lysis , dipst ick Nitrite negati ve Not Available In-Office Order Internal Use Only DO Not Attach Compendium DO Not Attach Compendium, Do Not Delete/merge, [id number] 06/21/2024 13:59:14 06/21/20 24 06/21/2024 urina lysis , dipst ick Urobilinogen 1 Not Available In-Of fice Order Internal Use Only DO Not Attach Compendium DO Not Attach Compendium, Do Not Delete/merge, [id number] 06/21/2024 13:59:14 06/21/2006/21/2024 urina lysis , dipst ick Protein Negati ve Not Available In-Office Order Internal Use Only DO Not Attach Compendium DO Not Attach Compendium, Do Not Delete/merge, [id number] 06/21/2024 13:59:14 06/21/2006/21/2024 urina lysis , dipst ick pH 7.5 Not Available In-Office Order Internal Use Only DO Not Attach Compendium DO Not Attach Compendium, Do Not Delete/merge, [id number] 06/21/2024 13:59:14 06/21/20 24 06/21/2024 urina lysis , dipst ick Blood Negati ve Not Available In-Office Order Internal Use Only DO Not Attach Compendium DO Not Attach Compendium, Do Not Delete/merge, [id number] 06/21/2024 13:59:14 06/21/20 24 06/21/2024 urina lysis , dipst ick Specific [place] 1.025 Not Available In-Off ice Order Internal Use Only DO Not Attach Compendium DO Not Attach Compendium, Do Not Delete/merge, [id number] 06/21/2024 13:59:14 06/21/20 24 06/21/2024 urina lysis , dipst ick Ketone Negati ve Not Available In-Office Order Internal Use Only DO Not Attach Compendium DO Not Attach Compendium, Do Not Delete/merge, [id number] 06/21/2024 13:59:14 06/21/20 24 06/21/2024 urina lysis , dipst ick Bilirubin Negati ve Not Available In-Office Order Internal Use Only DO Not Attach Compendium DO Not Attach Compendium, Do Not Delete/merge, [id number] 06/21/2024 13:59:14 06/21/20 24 06/21/2024 urina lysis , dipst ick Glucose Negati ve Not Available In-Office Order Internal Use Only DO Not Attach Compendium DO Not Attach Compendium, Do Not Delete/merge, [id number] 06/21/2024 13:59:14 06/21/20 24 06/21/2024 urina lysis , dipst ick Appearance Slight ly Cloudy Not Available In-Office Order Internal Use Only DO Not Attach Compendium DO Not Attach Compendium, Do Not Delete/merge, [id number] 06/21/2024 13:59:14 06/21/20 24 06/21/2024 urina lysis , dipst ick Color Pale Yellow Not Available In-Office Order Internal Use Only DO Not Attach Compendium DO Not Attach Compendium, Do Not Delete/merge, [id number] 06/21/2024 13:59:14 06/21/20 24 06/21/2024 pregn candace test, urine HCG negati ve Not Available In-Office Order Internal Use Only DO Not Attach Compendium DO Not Attach Compendium, Do Not Delete/merge, [id number] 06/21/2024 13:59:20 06/21/20 24 06/21/2024 HbA1c (hemo globi n A1c), blood HbA1c 5.6 Not Available In-Office Order Internal Use Only DO Not Attach Compendium DO Not Attach Compendium, Do Not Delete/merge, [id number] 06/21/2024 13:59:09 06/21/20 24 06/21/2024 gluco se, finge rstic k, blood Blood Glucose: mg/dl 79 Not Available In-Off ice Order Internal Use Only DO Not Attach Compendium DO Not Attach Compendium, Do Not Delete/merge, [id number] 06/21/2024 13:59:06 Result Notes None recorded. Problems Name Problem SNOMED Code Status Onset Date Resolution Date Notes Provider Name and Address Organization Details Recorded Time Impacted cerumen of bilateral ears 78974626104466 08 Active 2023 Debra Ruggiero NP Attn: Annie fiore,[address] [place], [address], [facility] 4 14:35:43 Morbid obesity 349078555 Active 2023 Debra Ruggiero NP Attn: Annie g,[address] [place], [address], [facility] 4 14:52:39 Bacterial vaginosis 693086238 Active 2023 Debra Ruggiero NP Attn: Annie g,[address] [place], [address], [place] [facility] 4 14:52:46 Impacted cerumen in right ear 01827494430786 03 Active 2023 Debra Ruggiero NP Attn: Annie g,[address] [place], [address], [facility] 4 14:54:02 Problem Notes None recorded. Procedures Surgical History Date Name Laterality Status Provider Name and Address Organization Details Recorded Time Cerumen Removal completed Debra Ruggiero NP Attn: [employer],[address] , [place], [address], [place] [facility] 07/12/2024 15:00:55 Imaging Results None recorded. Procedure Notes None recorded. Medical Equipment None Reported. Allergies No known drug allergies Medications Name Sig Start Date Stop Date Status Note LastModified by Organization Details LastModified Time fluconazo le 150 mg tablet TAKE 1 TABLET BY MOUTH FOR 1 DAY 06/21 completed Not Available Not Available Not Available Debrox 6.5 % ear drops INSTILL 5 DROPS INTO AFFECTED EAR(S) BY OTIC ROUTE 2 TIMES PER DAY 2023 active Not Available Not Available Not Avai lable clindamyc in HCl 150 mg capsule 06/21 completed Not Available Not Available Not Available metronida zole 500 mg tablet TAKE 1 TABLET BY MOUTH TWICE DAILY FOR 7 DAYS active Not Available Not Available No t Available sulfameth oxazole 800 mg-trimet hoprim 160 mg tablet TAKE 1 TABLET BY MOUTH TWICE DAILY FOR 7 DAYS 06/21 completed Not Available Not Available Not Available doxycycli ne monohydra te 100 mg capsule TAKE 1 CAPSULE BY MOUTH TWICE DAILY FOR 7 DAYS 06/21 completed Not Available Not Available Not Available ceftriaxo ne 500 mg solution for injection Inject 500 mg IM 06/21 completed Pt tolerate d well. Not Available Not Available Not Available norethind thang acetate 1 mg-ethiny l estradiol 20 mcg tablet Take 1 tablet every day by oral route for 30 days. 06/21 completed Not Available Not Available Not Available ergocalci ferol (vitamin D2) 1,250 mcg (50,000 unit) capsule TAKE 1 CAPSULE BY MOUTH EVERY WEEK 06/21 completed Not Available Not Available Not Available Vitals Date Recorded Body height Body mass index (BMI) [Percentile] Per age and sex Body mass index (BMI) Body weight Oxygen saturation Oxygen saturation in Arterial blood by Pulse oximetry Heart rate Respiratory rate Body temperature Systolic blood pressure Diastolic blood pressure Provider Name and Address Organization Details Last Updated DateTime 3 160.02 cm 97 % 35.5 kg/m2 41994.5 7 g 99 % 99 % 84 /min 18 /min 97.6 [degF] 110 mm[Hg] 84 mm[Hg] Marissa rBown MA [facility] 3 09:53:55 Date Recorded Body height Body mass index (BMI) [Percentile] Per age and sex Body mass index (BMI) Body weight Oxygen saturation Oxygen saturation in Arterial blood by Pulse oximetry Heart rate Respiratory rate Body temperature Systolic blood pressure Diastolic blood pressure Provider Name and Address Organization Details Last Updated DateTime 3 160.02 cm 97 % 36 kg/m2 52416.6 5 g 98 % 98 % 80 /min 18 /min 98.2 [degF] 114 mm[Hg] 80 mm[Hg] Marissa Brown MA [facility] 3 10:50:34 Date Recorded Body height Body mass index (BMI) Body weight Heart rate Body temperature Respiratory rate Oxygen saturation Oxygen saturation in Arterial blood by Pulse oximetry Systolic blood pressure Diastolic blood pressure Provider Name and Address Organization Details Last Updated DateTime 4 162.56 cm 39.1 kg/m2 483569. 06 g 85 /min 98.1 [degF] 18 /min 98 % 98 % 127 mm[Hg] 79 mm[Hg] Mary Valencia MA [facility] 4 14:14:01 Date Recorded Body height Body mass index (BMI) Body weight Heart rate Body temperature Respiratory rate Oxygen saturation Oxygen saturation in Arterial blood by Pulse oximetry Systolic blood pressure Diastolic blood pressure Provider Name and Address Organization Details Last Updated DateTime 4 162.56 cm 39.9 kg/m2 806172. 23 g 95 /min 97.5 [degF] 18 /min 99 % 99 % 123 mm[Hg] 82 mm[Hg] Mary Valencia MA [facility] 4 14:41:56 Social History Question Answer Notes LastModified by Organizat ion Details LastModified Time Tobacco Smoking Status Never Smoker Janey Harris MA null, [facility] 10/24/2014 12:59:44 What Is Your Level Of Alcohol Consumption? None Information not available 02/11/2022 Animal Exposure? No Informat ion not available 08/09/2018 Are You Blind Or Do You Have Difficulty Seeing? No Information not available 02/11/2022 What Is Your Level Of Caffeine Consumption? Occasional Information not available 10/24/2014 In The 14 Days Before Symptom Onset, Have You Had Close Contact With A Laboratory-confir med COVID-19 While That Case Was Ill? No Information not available 02/11/2022 In The 14 Days Before Symptom Onset, Have You Had Close Contact With A Person Who Is Under Investigation For COVID-19 While That Person Was Ill? No Information not available 02/11/2022 Have You Been To An Area Known To Be High Risk For COVID-19? No Information not available 02/11/2022 Are You Currently Employed? Yes Information not available 02/11/2022 Are You Deaf Or Do You Have Serious Difficulty Hearing? No Information not available 02/11/2022 What Type Of Diet Are You Following? REGULAR Information not available 08/09/2018 Are There Any Guns Present In Your Home? No Information not available 02/11/2022 Car Seat Type Or Seat Belt? Seat Belt Information not available 10/24/2014 What Was The Date Of Your Most Recent Tobacco Screening? 07/12/2024 Information not available 07/12/2024 How Many Children Do You Have? -2 Information not available 02/11/2022 Do You Use Protection During Sex? Usually Information not available 02/11/2022 What Is Your Relationship Status? Single Information not available 02/11/2022 What Is The Name Of Your School? [employer] Information not available 08/09/2018 Do You Use Your Seat Belt Or Car Seat Routinely? Yes Information not available 02/11/2022 Are You Sexually Active? Yes Information not available 02/11/2022 Do You Have Smoke And Carbon Monoxide Detectors In Your Home? Yes Information not available 08/09/2018 Are You Passively Exposed To Smoke? Yes Information no t available 08/09/2018 Do You Feel Stressed (tense, Restless, Nervous, Or Anxious, Or Unable To Sleep At Night)? [id number] Information not available 02/11/2022 Do You Use Any Illicit Or Recreational Drugs? No Information not available 02/11/2022 Do You Use Sunscreen Routinely? No Information not available 02/11/2022 Has Tobacco Cessation Counseling Been Provided? No Information not available 06/21/2024 Year In School 10 [email or web address] Informatio n not available 08/09/2018 Do You Or Have You Ever Used Any Other Forms Of Tobacco Or Nicotine? No Information not available 07/12/2024 Sex: Female Functional Status Question Answer Note LastModified by Organization D etails LastModified Time Are you able to care for yourself? Yes Information n ot available 02/11/2022 What is your exercise level? None Information not available 02/11/2022 Mental Status None recorded. Family History Relationship Description Onset Age of this Age Resolved Age Notes LastModified by Organization Details LastModified Time Mother Hypertensive disorder Not available 2017 15:36:25 Maternal Grandmother Hypertensive disorder Not available 2017 15:36:25 Maternal Grandmother Diabetes mellitus Not available 2017 15:36:34 Maternal Aunt Hypertensive disorder Not available 2017 15:36:25 Medical History Condition Response Coronary Artery Disease N Other N Atrial Fibrillation N High Blood Pressure N Blood Diseases N Depression N COPD N Blood Clots N Developmental or Behavioral Disorders N Premature N Anxiety Disorder N Muscle, Joint, or Bone Problems N Vision or Eye Problems N Head Injury/Concussion N Acid Reflux (GERD) N Cancer N Stroke N ADHD N Bladder or Kidney Problems N High Cholesterol N Liver Disease N Headaches N Ear or Hearing Problems N Thyroid Problems N Kidney or Bladder Problems N GI Problems N Have you had a mammogram in the last yea r? N Skin Problems N Anemia N Constipation N Heart Attack ([place]) N Diabetes N Bedwetting N Seizures/Epilepsy N Heart Problems/Murmur N Have you had a colonoscopy in the last 1 0 years? N Allergies N Asthma N Have you had a PSA blood test in the las t year? N Hepatitis N Osteoporosis N Heart Failure N Chicken Pox N Autism Spectrum Disorder (ASD) N Gynecological History Statement/Question Response Date of Last Mammogram Flow Moderate Date of LMP 07/02/2024 Frequency of Cycle (Q days) 28 Menses Monthly Y Date of Last Pap Smear Duration of Flow (days) 3 Current Control Method None Age at First Child 11 LMP Definite Obstetrics History GPAL:G 0 P 0 0 0 0 Immunizations Vaccine Type Date Status Note Provider Nam e and Address Organization Details Recorded Time Meningococcal MCV4O 5 completed Not Available [facility] 09/17/2019 02:31:18 Tdap 5 completed Not Available [facility] 09/17/2019 02:30:20 HPV9 8 completed Not Available [facility] 09/17/2019 02:36:58 Influenza, split virus, quadrivalent, PF 8 completed Not Available [facility] 09/17/2019 02:43:07 Past Encounters Encounter ID Performer Location Encounter Start Date Encounter Closed Date Diagnosis/Indication Diagnosis SNOMED-CT Code Diagnosis ICD10 Code Diagnosis Note [id number] Janey Harris MA [address] [address] 10/24/2014 12:16:21 10/28/2014 12:26:17 Well child [id number] Drea MayberryTemi okia [address] [place] [address] 08/09/2018 14:49:13 08/11/2018 11:11:38 Abscess 552002379 L02.91 right buttockres olvedRec bleach baths if abscesses become recurrent Amenorrhea 44149852 N91. 2 Urine HCG is negWill order labsWill give trial of OCPsF/u in 3 months Active or passive immunization 564576556 Z23 HPV#1 and flu todayAll other vaccines are UTD in [facility] Infection screening 8077 83650 Z11.9 Screening for disorder 908845895 Z13.9 Diet education 22296468 Z71.3 Exercises education, guidance, and counseling 487222851 Z71.82 [id number] Rachel Jean MD [address] [address] 12/18/2020 10:52:27 12/20/2020 06:57:13 Increased frequency of urination 013725827 R35.0 [id number] TERI Haque NP [address] [address] 02/11/2022 11:07:17 02/12/2022 08:29:56 Venereal disease screening 000370817 Z11.3 Candidiasis of vagina 72 399241 B37.3 discussed good vaginal hygiene with mom and patient. discussed proper wiping technique. encourage to not hold urine and take time to empty bladder completely . decrease intake of juice and sugary beverages. [id number] Martha Perez PA-C [place] [address] 10/02/2022 09:25:39 10/03/2022 08:53:03 Body mass index 30+ - obesity 630919678 Z68.30 Obesity 508213007 E66.9 Adult heal th examination 084873876 Z00.00 Venereal d isease screening 835798404 Z11.3 [id number] Martha Perez PA-C [place] [address] 12/04/2022 10:45:04 12/05/2022 09:55:11 Obesity 831724195 E66.9 Hyperglycemia 75197574 R 73.9 Vitamin D deficiency 347 56391 E55.9 [id number] Debra Ruggiero NP [place] [address] 06/21/2024 13:45:08 06/28/2024 09:26:17 Adult health examination 542847605 Z00.00 -establish as new pt Venereal d isease screening 353680661 Z11.3 -reports hx of GC+ CT in 2020-state s completed tx Impacted c erumen of bilateral ears 0846591197 903781 H61.23 [id number] Bridgett Munoz [facility] [address] [place] [address] 06/21/2024 15:56:14 06/30/2024 03:47:58 Adult health examination 551422840 Z00.00 [id number] Debra Ruggiero NP [place] [address] 07/12/2024 14:32:03 07/22/2024 08:35:51 Morbid obesity 659360400 E66.01 -plan to lose 10lbs prior to next visit-disc uss healthy lifestyle- may consider other weight loss trials next visit Bacterial vaginosis 4197 34578 N76.0 as evidence by +Gloria Impacted c erumen in right ear 4956497437 064186 H61.21 cerumen removal in office Health Concerns Section Related Observation LastModified by Organization Detai ls LastModified Time None Recorded Concern Status LastModified by Organization Details LastModified Time None Recorded Advance Directives Directive None Recorded Payers Encounter Date Sequence Insurance Name Policy Number Policy Hines Covered Member ID Hines Member ID Guarantor Name 10/02/2022 1 [facility] (MEDICAID HM) [id number] Christine [place] [id number] Marzella Aryan 12/04/2022 1 [facility] (MEDICAID HM) [id number] Christine Sawyer [place] [id number] Marzella Aryan 06/21/2024 1 [employer] EMPLOYEE CLAIMS - [employer] ([facility]) Christine RamirezKolton [id number] Marzella Aryan 06/21/2024 1 [employer] EMPLOYEE CLAIMS - [employer] ([facility]) Christine RamirezKolton [id number] Marzella Aryan 07/12/2024 SLIDING FEE SCHEDULE - DISCOUNT Marzella Aryan Notes Date Note Type Note Provider Name and Address Organization Details Recorded Time 10/02/2022 text/html Medicare Annual Wellness VisitReported bypatient.Diet and Nutrition:healthy diet Fracture Risk:no history of fractures; no recent explained fracture; no sudden unexplained fractures; no previous musculoskeletal injuries Physical Activity:exercises on a regular basis; recent increase in physical activity; good physical condition Depression Risk:never feels sad, empty, or tearful; no loss of interest in activities; no significant changes in weight; no sleep disturbances or insomnia; no agitation; no loss of energy; no feelings of worthlessness or guilt; no thoughts of suicide; no history of depression; no history of mood disorders Orientation:no disorientation to time; no disorientation to date; no disorientation to place Concentration and Memory:no decreased concentrating ability; no memory lapses or loss; does not forget words Speech/Motor difficulties:no speech difficulties; no difficulty expressing formulated concepts; no difficulty with fine manipulative tasks; no difficulty writing/copying; no slowed reaction time; does not knock things over when trying to pick them up Hearing:no loss of hearing Vision:no vision problems Activities of Daily Living:able to bathe with limited or no assistance; able to contol urination and bowels; able to dress with limited or no assistance; able to feed self with limited or no assistance; able to get out of chair or bed with limited or no assistance; able to groom with limited or no assistance; able to toilet with limited or no assistance Instrumental Activities of Daily Living:able to do house work with limited or no assistance; able to grocery shop with limited or no assistance; able to manage medications with limited or no assistance; able to manage money with limited or no assistance; able to prepare meals with limited or no assistance; able to use the phone with limited or no assistance Falls Risk Assessment:no frequent falls while walking; no fall in the past year; no fall since last visit; no dizziness/vertigo Home Safety:no unsafe avinash hazzards; no unsafe stairs; no unsafe gas appliances; working smoke/CO detectors; wears protective head gear for biking/high velocity; use of seatbelts; practicing 'safer sex'; no vision or hearing loss while driving; no fire arms; has hand bars in the bathroom/shower; good lighting in the home Martha Perez PA-C Attn: [employer] [place], [address], [place] [facility] 10/02/2022 15:09:43 12/04/2022 text/html follow up from l ast visit Martha Perez PA-C Attn: [employer] [place], [address], [place] [facility] 12/04/2022 11:32:42 06/21/2024 text/html 19-year-old fema le with a limited PMHx: Denies any daily medication use. Here today to establish as a new patient with PCP.Pt denies any chest pain, SOB, fever, chills, n/v, or abdominal pain. Debra Ruggiero NP Attn: [employer] [place], [address], [place] [facility] 06/27/2024 14:37:17 07/12/2024 text/html EaracheReported bypatient.Location:[facility] Quality:aching; dull Severity:same Duration:intermittent ; symptoms lasting over 2 weeks Timing:gradual Context:no sick contacts; no recent swimming/water in ear; no exposure to second hand smoke; no head trauma; not grinding teeth; no recent air travel Modifying Factors:does not hurt to lie on, or pull on ear; does not hurt to chew Associated Symptoms:no discharge from the ears;hearing loss __19_yr old Female here today for medically necessary follow up regarding labs, and ongoing right ear fullness.Pt denies any new onset fever, chills, chest pain or SOB, or abdominal pain. Debra Ruggiero NP Attn: [employer] [place], [address], [facility] 07/21/2024 12:25:01 OBGyn Episode No OBEpisode recorded.
--- OUTSIDE RECORDS SUMMARY | 2024-12-22 18:52 | XMS_ITS | Data Portability ---
Author Organization [facility] , [facility] Address [address] [place] [address] Assessment No assessment recorded. Plan of Treatment Reminders Order Date Submit Date Provider Last Modified By Organization Details Last Modified Time Details Appointments None recorded . Lab prolacti n, serum 024 09/22/[address] [facility], [address] [place] [address], [address], 4 11:53:26 beta-HCG , quantita tive, serum or plasma 024 09/22/19 [facility], [address] [place] [address], [address], 4 11:53:28 TSH, serum, reflex free T4 024 09/22/[address], [address], 4 11:53:27 Referral None recorded . Procedures None recorded . Surgeries None recorded . Imaging US, breast 024 09/22/[address] [facility] Patient Access Centralized Scheduling, Centralized Scheduling, [address] [place], [address], 4 13:04:57 Medication Orders None recorded . Patient TargetsNo targets recorded. Patient InstructionsNo instructions recorded. Reason for Referral None Reported. Results Created Date Observation Date Name Description Value Unit Range Abnormal Flag Note LastModifiedBy Organization Detail LastModifiedTime 09/23/19 24 09/23/2023 PROLA CTIN prolactin 6.8 NG/mL Refer ence Range s Femal e aged 18-Ad ult Nonpr egnan t: 2.8-2 9.2 ng/mL Pregn ant: 9.7-2 08.5 ng/mL Post- menop ausal : 1.8-2 0.3 ng/mL Pregn candace, lacta tion, and the admin istra tion of oral contr acept andres can incre ase prola ctin matthew ntrat ions. Not Available [address], [address], 09/23/2023 11:53:26 09/22/19 24 09/23/2023 TSH W/ REFLE X TSH 0.85 mIU/L 0.55 - 4.78 normal Refer ence Range Femal e aged 18-Ad ult: 0.55- 4.78 Pregn candace Refer ence Range s First Trime ster 0.26- 2.66 Secon d Trime ster 0.55- 2.73 Third Trime ster 0.43- 2.[address] [facility] [address] [place] [address], [address], 09/23/2023 11:53:27 09/22/19 24 09/23/2023 HCG, TOTAL , QUANT HCG, total, quant < 2 mIU/m L <5 normal Refer ence Range s are for femal es aged 18 years - Adult Nonpr egnan t or preme nopau armin <5 Postm enopa usal <10 Value s from diffe rent assay metho ds may vary. The use of this assay to monit or or to diagn ose patie nts with cance r or any other condi tion unrel ated to pregn candace has not been valid ated by the manuf actur er of this assay . Not Available [facility] [place], [address], 09/23/2023 11:53:28 10/27/19 24 10/27/2023 MAMMO , diagn ostic , digit al, bilat eral No observ ation record ed. [address], [address], 10/28/2023 15:14:35 10/27/19 24 10/27/2023 MAMMO , diagn ostic , digit al, bilat eral No observ ation record ed. [address], [address], 10/28/2023 15:14:36 Result Notes None recorded. Procedures Surgical History None recorded. Imaging Results Imaging Date Name Status LastModified by Organiz ation Details LastModified Time 10/27/2023 MAMMO, diagnostic, digital, bilateral completed [address], [address], 10/28/2023 15:14:35 10/27/2023 MAMMO, diagnostic, digital, bilateral completed [address], [address], 10/28/2023 15:14:36 Procedure Notes None recorded. Medical Equipment None Reported. Allergies No known drug allergies Medications Name Sig Start Date Stop Date Status Note LastModified by Organization Details LastModified Time ergocalciferol (vitamin D2) 1,250 mcg (50,000 unit) capsule TAKE 1 CAPSULE BY MOUTH EVERY WEEK active Not Available Not Available No t Available Vitals Date Recorded Body temperature Body weight Body mass index (BMI) Body mass index (BMI) [Percentile] Per age and sex Body height Systolic blood pressure Diastolic blood pressure Provider Name and Address Organization Details Last Updated DateTime 3 97.8 [degF] 643[address].7 1 g 37.4 kg/m2 98 % 160.02 cm 124 mm[Hg] 72 mm[Hg] Yazmin Hernandez [facility] 3 14:28:15 Date Recorded Body height Body mass index (BMI) Body mass index (BMI) [Percentile] Per age and sex Body weight Body temperature Systolic blood pressure Diastolic blood pressure Provider Name and Address Organization Details Last Updated DateTime 4 160.02 cm 17.3 kg/m2 3 % 59720.3 3 g 97.8 [degF] 114 mm[Hg] 68 mm[Hg] Rachelle Shirley [facility] 09:58:02 Social History Question Answer Notes LastModified by Organizat ion Details LastModified Time Are You Blind Or Do You Have Difficulty Seeing? No [email or web address] Information n ot available 09/22/2023 Are You Deaf Or Do You Have Serious Difficulty Hearing? No [email or web address] Information not available 09/22/2023 What Type Of Diet Are You Following? REGULAR [email or web address] Information n ot available 09/22/2023 How Many Children Do You Have? 0 Information not available 09/22/2023 Are You Sexually Active? Yes [email or web address] Information not available 09/22/2023 Sex: Unknown Functional Status None recorded. Mental Status None recorded. Family History Relationship Description Onset Age of this Age Resolved Age Notes LastModified by Organization Details LastModified Time Father No current problems or disability [email or web address] Not available 09/22 09:50:45 Mother No current problems or disability [email or web address] Not available 09/22 09:50:45 Medical History Condition Response High Blood Pressure N Cytomegalovirus N Hyperthyroidism N MRSA N Blood Transfusion N Depression N Incontinence N Anxiety Disorder N Autoimmune disease N Arthritis N Polycystic Ovarian Syndrome N Hematuria N Varicosities N Stroke N Seasonal allergies N Crohn's Disease N Alzheimer's/Dementia N COPD/Emphysema N History of Abnormal Pap N Fibromyalgia N Kidney Infection N Kidney Disease N Gallbladder disease N Von Willebrand disease N Eating Disorder N Diabetes Mellitus (non-insulin dependent ) N Ovarian Problems N Frequent Urinary Tract infections N Osteopenia N GERD (reflux) N Diabetes (insulin dependent) N Heart Attack N Asthma N Endometrial Cancer N Hepatitis N Pulmonary Embolism N RPR N Chicken Pox N Other Cancer N Colon Cancer N Herpes (HSV) N Breast Cancer N Lung Cancer N Hypothyroidism N Panic Attacks N Neurological Disorder N Deep Vein Thrombosis N Shingles N Tuberculosis/Positive PPD N Cervical Cancer N Chlamydia N Endometriosis N HPV/Genital Warts N IBS (Irritable Bowel Syndrome) N High Cholesterol N Liver Disease N Ulcer N HIV N Sickle Cell Disease/Trait N ADD/ADHD N Anemia N Multiple Sclerosis N Gonorrhea N Headaches/migraines N Ovarian Cancer N Seizures/Epilepsy N Fibroids N Lupus N Rubella N Blood Clotting Disorder N Bipolar Disorder N Diabetes Mellitus (during ) N Ulcerative Colitis N Heart Disease N Osteoporosis N Gynecological History Statement/Question Response Flow Moderate Date of LMP 08/31/2023 HPV Vaccine Y Date of Last Pap Smear Duration of Flow (days) 5 Current Control Method None Age at Menarche 11 Obstetrics History GPAL:G 0 P 0 0 0 0 Past Encounters Encounter ID Performer Location Encounter Start Date Encounter Closed Date Diagnosis/Indication Diagnosis SNOMED-CT Code Diagnosis ICD10 Code Diagnosis Note [id number] [facility] [address] [place] [address] 04/08/2023 14:13:33 04/08/2023 18:22:17 Furuncle of breast 55090820 N61.1 No s/s of infection. Pt will call back if: fever, feeling sick, swelling, redness, or warmth to area. Discussed keeping area clean and avoid picking/sq ueezing.Wi ll use warm compresses a few times a day. [id number] [facility] [address] [place] [address] 09/22/2023 09:46:56 09/23/2023 11:59:49 Discharge from nipple [id number] N64.52 Will do labs today: Prolactin, TSH w/ reflex, HCG quant. Will order breast US.POC pending- [facility] Referral if needed. If increased Prolactin- MRI brain + pituitary w/wo contrast. Health Concerns Section Related Observation LastModified by Organization Detai ls LastModified Time None Recorded Concern Status LastModified by Organization Details LastModified Time None Recorded Advance Directives Directive None Recorded Payers Encounter Date Sequence Insurance Name Policy Number Policy Hines Covered Member ID Hiens Member ID Guarantor Name 04/08/2023 1 [employer] [id number] Christine Lowe [id number] Christine Lowe 04/08/2023 2 [employer] Christine Jin [id number] Christine Lowe 09/22/2023 1 [employer] [id number] Christine Lowe [id number] Christine Lowe Notes Date Note Type Note Provider Name and Address Organization Details Recorded Time 04/08/2023 text/html Pt presents for pimple on her breast [place] [id number] [facility], [place], [address], [facility] 04/08/2023 14:44:47 09/22/2023 text/html Breast ProblemReported bypatient.Reason for visitBreast discharge Location:left Onset/Timin-7 days Quality:no bloody discharge; no brown discharge; no yellow-clear discharge; no yellow-green discharge; non-tender; improving; no mass;milky discharge left Severity:moderate Context:prior mammogram normal; performs breast self-examination; no breast implants; no family history of breast cancer; no history of breast cancer; no radiation treatment; no chemotherapy; no cancer; no previous biopsies; no miscarriages; recent MRI normal; lymph node status negative Modifying Factors:no recent change in exercise habits; no recent changes in weight; no recent changes in diet; no recent changes in medication dosage of hormone replacement therapy Aggravating Factors:none Christine presents today for left breast discharge. KAVYA PONCE JOSE [address] [place] [address], [phone], [facility] 09/22/2023 10:27:47 OBGyn Episode No OBEpisode recorded.
[2024-12-22 18:53] VITALS: BP 120/67; PULSE 90; RESP 18; TEMP 36.6; O2SAT 100
== END 2024-12-22 19:00 | disposition home or self-care (01) ==
PROVIDERS: Emergency Provider Nurse Practitioner Family
DX: L30.1 Dyshidrosis [pompholyx] (principal)
CPT/HCPCS: 99203; G0463